=== PATIENT | female | born 1950 | race Caucasian/White ===

== ENCOUNTER → 2020-09-18 | Outpatient (CLI) | payer MEDICARE, OTHER | LOC: KOH-I 09:04 | DX: M25.571 Pain in right ankle and joints of right foot (principal); M19.071 Primary osteoarthritis, right ankle and foot | CPT/HCPCS: 73610; 73630 ==

== ENCOUNTER → 2020-10-02 | Outpatient (CLI) | payer MEDICARE, OTHER | LOC: KOH-I 09-28 13:30 | DX: T84.126A Displacement of internal fixation device of bone of right lower leg, initial encounter (principal) | CPT/HCPCS: 73700 ==

== ENCOUNTER → 2021-06-07 | Outpatient (CLI) | payer MEDICARE, OTHER | LOC: KOH-I 09:53 | DX: Z01.818 Encounter for other preprocedural examination (principal); M24.371 Pathological dislocation of right ankle, not elsewhere classified; M19.171 Post-traumatic osteoarthritis, right ankle and foot | CPT/HCPCS: 93926 ==

== ENCOUNTER → 2021-06-14 | Outpatient (CLI) | payer MEDICARE, OTHER ==
[~2021-06-14] MED LIST: LEVOTHYROXINE75 MCG PO; LEXAPRO20 MG PO; LOSARTAN-HCTZ1 EAC2 PO; OMEPRAZOLE40 MG PO; RELAFEN750 MG PO; VITAMIN B-121000 MCG PO; VITAMIN D325 MC6 PO
[2021-06-14 11:46] LABS: HEMOGLOBIN 13.8 gm/dl (12.3-15.3); RED BLOOD COUNT 4.5 M/UL (4.00-5.10); WHITE BLOOD COUNT 8.3 K/UL (4.5-11.0)
[2021-06-14 12:12] LABS: BUN/CREATININE RATIO 32 (0-10)
== END ==
LOC: OPSV2 10:46
PROVIDERS: Podiatrist Foot & Ankle Surgery
DX: Z01.818 Encounter for other preprocedural examination (principal)
CPT/HCPCS: 36415; 80048; 85027; 93005

== ENCOUNTER 2021-06-20 05:52 | Day surgery (SDC) | payer MEDICARE, OTHER ==
[~2021-06-20] VITALS: Ht 160 cm; Wt 100.7 kg
[2021-06-20] MEDS ORDERED: SULFAMETHOXAZO1 EACH PO (06:35)
[2021-06-21 05:08] LABS: BUN/CREATININE RATIO 24 (0-10)
[2021-06-21 12:30] LABS: HEMOGLOBIN 11.6 gm/dl (12.3-15.3); RED BLOOD COUNT 3.84 M/UL (4.00-5.10); WHITE BLOOD COUNT 8.7 K/UL (4.5-11.0)
[2021-06-22 09:04] LABS: BUN/CREATININE RATIO 15 (0-10)
== END 2021-06-22 14:28 | disposition home health service (06) ==
LOC: M/S 05:52 → OR 05:52 → M/S 12:45 → OR 17:30
PROVIDERS: Podiatrist Foot & Ankle Surgery
DX: M19.171 Post-traumatic osteoarthritis, right ankle and foot (principal); T84.84XA Pain due to internal orthopedic prosthetic devices, implants and grafts, initial encounter; M21.071 Valgus deformity, not elsewhere classified, right ankle; T81.89XA Other complications of procedures, not elsewhere classified, initial encounter; G89.18 Other acute postprocedural pain; I10 Essential (primary) hypertension; E03.9 Hypothyroidism, unspecified; E78.5 Hyperlipidemia, unspecified; Z79.899 Other long term (current) drug therapy; Z20.822 Contact with and (suspected) exposure to COVID-19
CPT/HCPCS: 36415; 73610; 73650; 76000; 80048; 80202; 82962; 85025; 87070; C1713; C1900; J0360; J0690; J1100; J1170; J1650; J1885; J2250; J2405; J2704; J2795; J3010; J3370; J7070; J7120

== ENCOUNTER → 2021-06-28 | Outpatient (CLI) | payer MEDICARE, OTHER ==
[~2021-06-28] MED LIST changes: +SULFAMETHOXAZO1 EACH PO
== END ==
LOC: KOH-I 09:58
DX: Z47.89 Encounter for other orthopedic aftercare (principal)
CPT/HCPCS: 73610

== ENCOUNTER → 2021-07-11 | Outpatient (CLI) | payer MEDICARE, OTHER | LOC: LBRF 14:48 | DX: Z51.81 Encounter for therapeutic drug level monitoring (principal); Z79.2 Long term (current) use of antibiotics | CPT/HCPCS: 80202 ==

== ENCOUNTER → 2021-07-19 | Outpatient (CLI) | payer MEDICARE, OTHER | LOC: KOH-I 10:08 | DX: M25.571 Pain in right ankle and joints of right foot (principal) | CPT/HCPCS: 73610 ==

== ENCOUNTER → 2021-08-21 | Outpatient (CLI) | payer MEDICARE, OTHER | LOC: KOH-I 09:40 | DX: M25.571 Pain in right ankle and joints of right foot (principal); Z96.661 Presence of right artificial ankle joint | CPT/HCPCS: 73610 ==

== ENCOUNTER → 2021-09-11 | Outpatient (CLI) | payer MEDICARE, OTHER | LOC: KOH-I 08:19 | DX: M25.571 Pain in right ankle and joints of right foot (principal); M85.871 Other specified disorders of bone density and structure, right ankle and foot; R60.0 Localized edema | CPT/HCPCS: 73610 ==

== ENCOUNTER → 2021-09-20 | Outpatient (CLI) | payer MEDICARE, OTHER | LOC: KOH-I 09:11 | DX: M25.571 Pain in right ankle and joints of right foot (principal) | CPT/HCPCS: 73610 ==